=== PATIENT | female | born 1975 | race Caucasian/White ===

== ENCOUNTER → 2017-09-18 | Outpatient (CLI) | payer OTHER ==
[~2017-09-18] VITALS: Ht 152.4 cm; Wt 57.2 kg
[~2017-09-18] MED LIST: ALLEGRA ALLERG180 MG PO; CLOBEX59 M1; CLOBEX59 ML; DICLOFENAC POTA50 MG PO; FLONASE16 GM NS; GILTUSS TR TAB1 EACH PO; NEURONTIN300 MG PO; SEPTRA DS PO; SKELAXIN800 MG PO; TESSALON PERLE100 MG PO; TUSNEL CAPSULE1 CAP PO; URETRON DS1 TAB PO; ZOVIRAX5 GM TP; ZOVIRAX800 M1 PO
== END | disposition home or self-care (01) ==
LOC: PPHC 09:29
DX: B34.9 Viral infection, unspecified (principal)

== ENCOUNTER 2018-07-02 14:27 | Outpatient (CLI) | payer OTHER | END 2018-07-03 14:21 | disposition home or self-care (01) | LOC: NUCLEAR 14:27 | DX: M81.0 Age-related osteoporosis without current pathological fracture (principal) ==

== ENCOUNTER 2018-07-23 15:06 | Outpatient (CLI) | payer OTHER | END 2018-07-23 15:10 | disposition home or self-care (01) | LOC: RAD 15:06 | DX: M72.2 Plantar fascial fibromatosis (principal); M25.572 Pain in left ankle and joints of left foot; Z00.01 Encounter for general adult medical examination with abnormal findings ==

== ENCOUNTER 2018-11-07 12:18 | Outpatient (CLI) | payer OTHER ==
[~2018-11-07] VITALS: Ht 160 cm; Wt 56.2 kg
== END 2018-11-07 12:35 | disposition home or self-care (01) ==
LOC: OFIC 805 12:18
DX: R09.81 Nasal congestion (principal); J32.8 Other chronic sinusitis

== ENCOUNTER 2018-11-18 08:41 | Outpatient (CLI) | payer OTHER ==
[~2018-11-18] VITALS: Ht 152.4 cm; Wt 56.2 kg
== END 2018-11-18 09:00 | disposition home or self-care (01) ==
LOC: OFIC 805 08:41
DX: R09.81 Nasal congestion (principal); J32.8 Other chronic sinusitis; R05 Cough

== ENCOUNTER 2018-11-18 14:18 | Outpatient (CLI) | payer OTHER | END 2018-11-18 14:35 | disposition home or self-care (01) | LOC: LAB 14:18 | DX: J32.8 Other chronic sinusitis (principal) ==

== ENCOUNTER 2018-11-25 10:00 | Outpatient (CLI) | payer OTHER | END 2018-11-25 14:52 | disposition home or self-care (01) | LOC: LAB 10:00 | DX: J11.1 Influenza due to unidentified influenza virus with other respiratory manifestations (principal); R50.9 Fever, unspecified; A49.3 Mycoplasma infection, unspecified site ==

== ENCOUNTER 2018-12-02 17:18 | Outpatient (CLI) | payer OTHER ==
[~2018-12-02] VITALS: Ht 152.4 cm; Wt 56.2 kg
== END 2018-12-02 17:35 | disposition home or self-care (01) ==
LOC: OFIC 805 17:18
DX: J32.8 Other chronic sinusitis (principal); R05 Cough; R09.81 Nasal congestion

== ENCOUNTER 2018-12-06 14:13 | Outpatient (CLI) | payer OTHER | END 2018-12-06 14:17 | disposition home or self-care (01) | LOC: RAD 14:13 | DX: R05 Cough (principal) ==

== ENCOUNTER 2019-05-02 10:26 | Outpatient (CLI) | payer OTHER ==
[~2019-05-02 10:26] MED LIST changes: +DICLOFENAC SODI50 MG PO
== END 2019-05-02 10:49 | disposition home or self-care (01) ==
LOC: SONOGRAMA 10:26
DX: D50.8 Other iron deficiency anemias (principal); N92.4 Excessive bleeding in the premenopausal period; L41.3 Small plaque parapsoriasis

== ENCOUNTER 2020-01-15 13:59 | Outpatient (CLI) | payer OTHER | END 2020-01-15 14:05 | disposition home or self-care (01) | LOC: RAD 13:59 | PROVIDERS: ATTEND Physical Medicine & Rehabilitation | DX: M54.2 Cervicalgia (principal); M54.5 Low back pain; M54.6 Pain in thoracic spine ==

== ENCOUNTER → 2020-02-04 09:50 | Outpatient (CLI) | payer OTHER ==
[~2020-02-04 09:50] MED LIST changes: +NABUMETONE750 MG PO; +NORFLEX100MG PO
== END | disposition home or self-care (01) ==
LOC: LAB 09:50
PROVIDERS: ATTEND Obstetrics & Gynecology Gynecologic Oncology
DX: Z11.1 Encounter for screening for respiratory tuberculosis (principal); N92.0 Excessive and frequent menstruation with regular cycle; D25.9 Leiomyoma of uterus, unspecified; R97.1 Elevated cancer antigen 125 [CA 125]

== ENCOUNTER 2020-04-27 17:55 | Outpatient (CLI) | payer OTHER | END 2020-04-27 19:13 | disposition home or self-care (01) | LOC: PPH VACUNA 17:55 | DX: Z23 Encounter for immunization (principal) ==

== ENCOUNTER → 2020-06-28 | Outpatient (CLI) | payer OTHER | END | disposition home or self-care (01) | LOC: OFIC 805 09:45 | PROVIDERS: ATTEND Otolaryngology | DX: J32.8 Other chronic sinusitis (principal); G44.89 Other headache syndrome; H05.221 Edema of right orbit ==

== ENCOUNTER 2020-07-02 08:12 | Outpatient (CLI) | payer OTHER | END 2020-07-02 08:20 | disposition home or self-care (01) | LOC: LAB 08:12 | PROVIDERS: ATTEND Internal Medicine Sports Medicine | DX: D64.89 Other specified anemias (principal); E55.9 Vitamin D deficiency, unspecified; E11.9 Type 2 diabetes mellitus without complications; E78.2 Mixed hyperlipidemia; I10 Essential (primary) hypertension ==

== ENCOUNTER → 2020-07-29 | Outpatient (CLI) | payer OTHER | END | disposition home or self-care (01) | LOC: OFIC 805 14:30 | PROVIDERS: ATTEND Otolaryngology | DX: R05 Cough (principal); R09.81 Nasal congestion; G44.89 Other headache syndrome; J30.89 Other allergic rhinitis ==

== ENCOUNTER 2020-11-08 08:17 | Outpatient (CLI) | payer OTHER | END 2020-11-08 16:05 | disposition home or self-care (01) | LOC: LAB 08:17 | DX: Z03.818 Encounter for observation for suspected exposure to other biological agents ruled out (principal) ==

== ENCOUNTER → 2021-04-14 | Outpatient (CLI) | payer OTHER | END | disposition home or self-care (01) | LOC: PPH VACUNA 08:00 | PROVIDERS: ATTEND Emergency Medicine Pediatric Emergency Medicine | DX: Z23 Encounter for immunization (principal) ==

== ENCOUNTER 2021-04-21 12:45 | Outpatient (CLI) | payer OTHER | END 2021-04-21 12:47 | disposition home or self-care (01) | LOC: PPH VACUNA 12:45 | PROVIDERS: ATTEND Emergency Medicine Pediatric Emergency Medicine | DX: Z23 Encounter for immunization (principal) ==

== ENCOUNTER 2021-06-28 10:17 | Outpatient (CLI) | payer OTHER | END 2021-06-28 10:18 | disposition home or self-care (01) | LOC: LAB 10:17 | PROVIDERS: ATTEND Internal Medicine Sports Medicine | DX: I10 Essential (primary) hypertension (principal); D64.89 Other specified anemias; E11.9 Type 2 diabetes mellitus without complications; E78.2 Mixed hyperlipidemia; E03.8 Other specified hypothyroidism ==

== ENCOUNTER → 2021-08-29 15:03 | Outpatient (CLI) | payer OTHER | END | disposition home or self-care (01) | LOC: LAB 15:03 | PROVIDERS: ATTEND Obstetrics & Gynecology | DX: D25.9 Leiomyoma of uterus, unspecified (principal); E83.51 Hypocalcemia; A64 Unspecified sexually transmitted disease; N39.0 Urinary tract infection, site not specified; R97.8 Other abnormal tumor markers; A60.9 Anogenital herpesviral infection, unspecified ==

== ENCOUNTER 2022-01-17 09:35 | Outpatient (CLI) | payer OTHER | END 2022-01-17 12:26 | disposition home or self-care (01) | LOC: LAB 09:35 | DX: Z20.828 Contact with and (suspected) exposure to other viral communicable diseases (principal); Z20.822 Contact with and (suspected) exposure to COVID-19 ==

== ENCOUNTER 2022-01-20 09:36 | Outpatient (CLI) | payer OTHER | END 2022-01-20 15:39 | disposition home or self-care (01) | LOC: LAB 09:36 | PROVIDERS: ATTEND General Practice | DX: J02.9 Acute pharyngitis, unspecified (principal); U07.1 COVID-19 ==

== ENCOUNTER 2022-02-03 09:15 | Outpatient (CLI) | payer OTHER | END 2022-02-03 09:21 | disposition home or self-care (01) | LOC: RAD 09:15 | PROVIDERS: ATTEND Internal Medicine Pulmonary Disease | DX: R05.9 Cough, unspecified (principal); U07.1 COVID-19 ==

== ENCOUNTER → 2022-03-13 08:58 | Outpatient (CLI) | payer OTHER | END | disposition home or self-care (01) | LOC: LAB 08:58 | PROVIDERS: ATTEND Internal Medicine Pulmonary Disease | DX: J45.30 Mild persistent asthma, uncomplicated (principal); U09.9 Post COVID-19 condition, unspecified; A15.0 Tuberculosis of lung; B39.4 Histoplasmosis capsulati, unspecified; R13.11 Dysphagia, oral phase ==

== ENCOUNTER 2022-04-21 08:00 | Outpatient (CLI) | payer OTHER | END 2022-04-21 08:05 | disposition home or self-care (01) | LOC: PPH VACUNA 08:00 | PROVIDERS: ATTEND Emergency Medicine Pediatric Emergency Medicine | DX: Z23 Encounter for immunization (principal) ==

== ENCOUNTER 2022-06-07 07:34 | Outpatient (CLI) | payer OTHER | END 2022-06-07 15:54 | disposition home or self-care (01) | LOC: LAB 07:34 | PROVIDERS: ATTEND Internal Medicine Sports Medicine | DX: D64.9 Anemia, unspecified (principal); E11.9 Type 2 diabetes mellitus without complications; E78.2 Mixed hyperlipidemia; I10 Essential (primary) hypertension; E03.8 Other specified hypothyroidism ==

== ENCOUNTER 2022-08-15 15:09 | Outpatient (CLI) | payer OTHER | END 2022-08-15 15:25 | disposition home or self-care (01) | LOC: LAB 15:09 | DX: Z11.51 Encounter for screening for human papillomavirus (HPV) (principal) ==

== ENCOUNTER 2022-09-15 11:31 | Outpatient (CLI) | payer OTHER | END 2022-09-15 11:37 | disposition home or self-care (01) | LOC: LAB 11:31 | PROVIDERS: ATTEND Obstetrics & Gynecology | DX: N39.0 Urinary tract infection, site not specified (principal) ==

== ENCOUNTER 2022-10-24 09:52 | Outpatient (CLI) | payer OTHER | END 2022-10-24 09:59 | disposition home or self-care (01) | LOC: RAD 09:52 | PROVIDERS: ATTEND Chiropractor | DX: M99.01 Segmental and somatic dysfunction of cervical region (principal); M99.02 Segmental and somatic dysfunction of thoracic region; M99.03 Segmental and somatic dysfunction of lumbar region; M99.05 Segmental and somatic dysfunction of pelvic region ==

== ENCOUNTER 2023-04-20 10:30 | Outpatient (CLI) | payer OTHER | END 2023-04-20 10:40 | disposition home or self-care (01) | LOC: PPH VACUNA 10:30 | PROVIDERS: ATTEND Emergency Medicine Pediatric Emergency Medicine | DX: Z23 Encounter for immunization (principal) ==

== ENCOUNTER 2023-06-14 09:15 | Outpatient (CLI) | payer OTHER ==
[2023-06-14 09:53] LABS: HEMATOCRIT 36.1 % (36.0-45.00); HEMOGLOBIN 12.2 g/dL (12.0-15.00); MEAN CELL VOLUME 91.6 fL (80.00-100.00); MEAN CORPUSCULAR HEMOGLOBIN 30.9 pg (27.00-32.0); MEAN CORPUSCULAR HGB CONC 33.7 g/dl (32.0-36.0); PLATELET COUNT 242 K/uL (150-450); RED BLOOD COUNT 3.95 M/uL (4.00-6.00)
[2023-06-14 10:55] LABS: MYCOPLASMA PNEUMONIAE IGM NON REACTIVE (NO REACTIVE)
== END 2023-06-14 09:20 | disposition home or self-care (01) ==
LOC: LAB 09:15
PROVIDERS: ATTEND General Practice
DX: R05.9 Cough, unspecified (principal); R50.9 Fever, unspecified; Z11.52 Encounter for screening for COVID-19

== ENCOUNTER → 2023-06-19 08:59 | Outpatient (CLI) | payer OTHER ==
[2023-06-19 08:55] LABS: HEMATOCRIT 36.9 % (36.0-45.00); HEMOGLOBIN 12.4 g/dL (12.0-15.00); MEAN CELL VOLUME 93.2 fL (80.00-100.00); MEAN CORPUSCULAR HEMOGLOBIN 31.2 pg (27.00-32.0); MEAN CORPUSCULAR HGB CONC 33.5 g/dl (32.0-36.0); PLATELET COUNT 249 K/uL (150-450); RED BLOOD COUNT 3.97 M/uL (4.00-6.00); RED CELL DISTRIBUTION WIDTH 13.1 % (11.5-14.5)
[2023-06-19 09:28] LABS: URINE APPEARANCE Clear; URINE BILIRRUBIN Negative (NEGATIVE); URINE BLOOD Small; URINE COLOR Yellow; URINE GLUCOSE Negative (NEGATIVE); URINE LEUKOCYTE Negative; URINE NITRATE Negative; URINE PROTEIN Negative (NEGATIVE); URINE UROBILINOGEN 0.2 E.U./dl
[2023-06-19 09:33] LABS: URINE BACTERIA 31.4 uL (0.0-1933); URINE EPITHELIAL CELLS 4.3 uL (0.0-38.8); URINE RBC 11.4 uL (0.0-20.8); URINE WBC 3.6 uL (0.0-23.2)
[2023-06-19 09:39] LABS: ALBUMIN 3.9 gm/dL (3.4-5.0); BILIRUBIN TOTAL 0.53 mg/dL (0.3-1.2); CALCIUM 8.9 mg/dL (8.5-10.1); CHOL HDL RATIO 2.6 (0-5.0); CREATININE SERUM 0.71 mg/dL (0.55-1.02); GFR 87.86; GLOBULINA 3.4 G/DL (2.4-3.5); POTASSIUM 4.63 mEq/L (3.5-5.1); T4 FREE 1.08 NG/ML (0.76-1.46); TOTAL PROTEIN 7.3 gm/dL (6.4-8.2); TSH 0.672 uIU/mL (0.358-3.74)
== END | disposition home or self-care (01) ==
LOC: LAB 06-18 16:03
PROVIDERS: ATTEND Internal Medicine Gastroenterology
DX: D64.9 Anemia, unspecified (principal); E11.9 Type 2 diabetes mellitus without complications; E78.2 Mixed hyperlipidemia; I10 Essential (primary) hypertension; E03.8 Other specified hypothyroidism; E55.9 Vitamin D deficiency, unspecified

== ENCOUNTER → 2023-06-26 15:20 | Outpatient (CLI) | payer OTHER | END | disposition home or self-care (01) | LOC: LAB 15:20 | PROVIDERS: ATTEND Internal Medicine Sports Medicine | DX: N30.00 Acute cystitis without hematuria (principal) ==

== ENCOUNTER 2024-09-19 05:30 | Day surgery (SDC) | payer OTHER ==
[2024-09-17 11:26] VITALS: BP 111/66
[2024-09-17 11:35] LABS: PH,URINE 6.5 (5.0-8.0); URINE APPEARANCE Clear; URINE BILIRRUBIN Negative (NEGATIVE); URINE BLOOD Trace; URINE COLOR Yellow; URINE GLUCOSE Negative (NEGATIVE); URINE KETONE Negative (NEGATIVE); URINE LEUKOCYTE Negative; URINE NITRATE Negative; URINE PROTEIN Negative (NEGATIVE); URINE UROBILINOGEN 0.2 E.U./dl
[2024-09-17 11:36] LABS: URINE BACTERIA 26.9 uL (0.0-1933); URINE EPITHELIAL CELLS 1.4 uL (0.0-38.8); URINE RBC 16.7 uL (0.0-20.8); URINE WBC 2.6 uL (0.0-23.2)
[2024-09-17 11:36] LABS: HEMATOCRIT 38.8 % (36.0-45.00); HEMOGLOBIN 12.8 g/dL (12.0-15.00); MEAN CELL VOLUME 90.7 fL (80.00-100.00); MEAN CORPUSCULAR HEMOGLOBIN 29.8 pg (27.00-32.0); MEAN CORPUSCULAR HGB CONC 32.9 g/dl (32.0-36.0); PLATELET COUNT 260 K/uL (150-450); RED BLOOD COUNT 4.28 M/uL (4.00-6.00); RED CELL DISTRIBUTION WIDTH 13.9 % (11.5-14.5)
[2024-09-17 12:09] LABS: INR 1.03; PARTIAL THROMBOPLASTIN TIME 28.4 SECONDS (22.0-34.0); PROTHROMBIN TIME 11.2 SECONDS (9.0-11.5)
[2024-09-17 12:58] LABS: ALBUMIN 4.2 gm/dL (3.4-5.0); BILIRUBIN TOTAL 0.62 mg/dL (0.3-1.2); CALCIUM 9.2 mg/dL (8.5-10.1); CREATININE SERUM 0.68 mg/dL (0.55-1.02); GFR 91.96; GLOBULINA 3.5 G/DL (2.4-3.5); POTASSIUM 4.3 mEq/L (3.5-5.1); TOTAL PROTEIN 7.7 gm/dL (6.4-8.2)
[~2024-09-19] VITALS: Ht 160 cm; Wt 59.0 kg
[~2024-09-19 05:30] MED LIST changes: +FLAGYL375 MG; +ZOLOFT50 MG PO
[2024-09-19] MEDS ORDERED: POVIDONE-IODINE 118 ML BOTT TOP ONE (08:15)
[2024-09-19] MEDS ORDERED: CHLORHEXIDINE GLUCONATE 120 ML BOTTLE TOP ONE (08:30)
[2024-09-19] MEDS ORDERED: PROMETHAZINE HCL 50 MG/ML AMPUL IM ONE (11:30)
[2024-09-19] MEDS ORDERED: MORPHINE SULFATE 4 MG/ML VIAL IV PRN (11:30)
== END 2024-09-19 15:10 | disposition home or self-care (01) ==
LOC: CIR.AMB 05:30 → U 05:30 → CIR.AMB 15:10
PROVIDERS: ATTEND Obstetrics & Gynecology
DX: D25.0 Submucous leiomyoma of uterus (principal); N84.0 Polyp of corpus uteri; N93.8 Other specified abnormal uterine and vaginal bleeding; F41.9 Anxiety disorder, unspecified